=== PATIENT | male | born 1965 | race Caucasian/White ===

== ENCOUNTER 2022-01-12 07:57 | Outpatient (RCR) | payer MEDICARE, MEDICAID, SELFPAY ==
--- NOTE | 2022-01-05 15:42 | ONC.NURNOTE ---
Authorization: User: Xuan Marrufo Date: 06/17/21 13:54 Type: Eligibility Determination Note... Request received for prior authorization of Melon Powerevus [id number]. Patient has Medicare and Medicaid for insurance. No prior authorization is required for Ocrevus. Services are based on medical necessity and follow Medicare and Medicare guidelines.
[2022-01-12 08:19] VITALS: BP 127/77; PULSE 90; RESP 16; TEMP 36.5; O2SAT 96
[2022-01-12] MEDS: METHYLPREDNISOLONE SOD SUCC 62.5 MG/ML (125) 100 MG IVP (08:34)
[2022-01-12] MEDS: diphenhydrAMINE 50 MG/ML inj 25 MG IVP (08:35)
[2022-01-12 12:49] VITALS: BP 120/80; PULSE 88; RESP 16; TEMP 37.1; O2SAT 95
== END 2022-07-11 23:59 | disposition home or self-care (01) ==
LOC: CCIC 07:57
PROVIDERS: PCP Student in an Organized Health Care Education/Training Program; Visit Provider Clinical Nurse Specialist
DX: G35 Multiple sclerosis (principal)
CPT/HCPCS: 96365; 96366; 96376; J1200; J2350; J2930; J7120

== ENCOUNTER 2022-08-01 07:53 | Outpatient (RCR) | payer MEDICARE, MEDICAID, SELFPAY ==
--- NOTE | 2022-07-17 10:45 | ONC.NURNOTE ---
Pt called stating due for next infusion. Orders . F[employer] called and left message with Dr. Ellis's office and faxed infusion order form to be filled out.
--- NOTE | 2022-07-20 10:18 | URNOTE ---
Received request for prior auth for Ocrevus ([id number]). Per [employer] on behalf of [facility] this has been approved Ocrevus, 600mg every 6 months. 07/21/2022-07/21/2023. Ref # [id number]
[2022-08-01 08:19] VITALS: BP 126/83; PULSE 101; RESP 18; TEMP 36.8; O2SAT 98
[2022-08-01] MEDS: diphenhydrAMINE 50 MG/ML inj 25 MG IVP (08:34)
[2022-08-01] MEDS: METHYLPREDNISOLONE SOD SUCC 62.5 MG/ML (125) 100 MG IVP (08:34)
[2022-08-01 12:48] VITALS: BP 122/76; PULSE 89; RESP 18; TEMP 36.4; O2SAT 94
== END 2023-01-28 23:59 | disposition home or self-care (01) ==
LOC: CCIC 07:53
PROVIDERS: PCP Student in an Organized Health Care Education/Training Program; Referring Provider Student in an Organized Health Care Education/Training Program; Visit Provider Clinical Nurse Specialist
DX: G35 Multiple sclerosis (principal)
CPT/HCPCS: 96365; 96366; 96376; J1200; J2350; J2930; J7120

== ENCOUNTER 2023-01-30 08:01 | Outpatient (RCR) | payer MEDICAID, SELFPAY ==
[2023-01-30 08:20] VITALS: BP 129/81; PULSE 75; RESP 16; TEMP 36.5
[2023-01-30] MEDS: diphenhydrAMINE 50 MG/ML inj 25 MG IVP (08:46)
[2023-01-30] MEDS: METHYLPREDNISOLONE SOD SUCC 62.5 MG/ML (125) 100 MG IVP (09:16)
[2023-01-30 13:20] VITALS: BP 95/64; PULSE 91; RESP 20; TEMP 36.8; O2SAT 94
== END 2023-07-29 23:59 | disposition home or self-care (01) ==
LOC: CCIC 08:01
PROVIDERS: PCP Student in an Organized Health Care Education/Training Program; Referring Provider Student in an Organized Health Care Education/Training Program; Visit Provider Clinical Nurse Specialist
DX: G35 Multiple sclerosis (principal)
CPT/HCPCS: 96376; 96413; 96415; J1200; J2350; J2930; J7120

== ENCOUNTER 2024-06-13 12:53 | Outpatient (CLI) | payer MEDICAID, SELFPAY | END 2024-06-13 12:54 | disposition home or self-care (01) | PROVIDERS: PCP Student in an Organized Health Care Education/Training Program; Visit Provider Nurse Practitioner Family | DX: L89.893 Pressure ulcer of other site, stage 3 (principal); G35 Multiple sclerosis; Z99.3 Dependence on wheelchair | CPT/HCPCS: 11042; G0463 ==

== ENCOUNTER 2024-06-20 12:46 | Outpatient (CLI) | payer MEDICAID, SELFPAY | END 2024-06-20 12:47 | disposition home or self-care (01) | LOC: WOUND 12:46 | PROVIDERS: PCP Student in an Organized Health Care Education/Training Program; Visit Provider Nurse Practitioner Family | DX: L89.893 Pressure ulcer of other site, stage 3 (principal); G35 Multiple sclerosis | CPT/HCPCS: 87070; 97597 ==

== ENCOUNTER 2024-06-27 13:05 | Outpatient (CLI) | payer MEDICAID, SELFPAY | END 2024-06-27 13:06 | disposition home or self-care (01) | LOC: WOUND 13:05 | PROVIDERS: PCP Student in an Organized Health Care Education/Training Program; Visit Provider Nurse Practitioner Family | DX: L89.893 Pressure ulcer of other site, stage 3 (principal); G35 Multiple sclerosis | CPT/HCPCS: 97597 ==

== ENCOUNTER 2024-07-04 13:04 | Outpatient (CLI) | payer MEDICAID, SELFPAY | END 2024-07-04 13:05 | disposition home or self-care (01) | LOC: WOUND 13:05 | PROVIDERS: PCP Student in an Organized Health Care Education/Training Program; Visit Provider Physician Assistant | DX: L89.893 Pressure ulcer of other site, stage 3 (principal); G35 Multiple sclerosis | CPT/HCPCS: 97597 ==

== ENCOUNTER 2024-07-11 13:09 | Outpatient (CLI) | payer MEDICAID, SELFPAY | END 2024-07-11 13:10 | disposition home or self-care (01) | LOC: WOUND 13:09 | PROVIDERS: PCP Student in an Organized Health Care Education/Training Program; Visit Provider Physician Assistant | DX: L89.893 Pressure ulcer of other site, stage 3 (principal); G35 Multiple sclerosis | CPT/HCPCS: 97597 ==

== ENCOUNTER 2024-07-18 11:20 | Outpatient (CLI) | payer MEDICAID, SELFPAY | END 2024-07-18 11:21 | disposition home or self-care (01) | LOC: WOUND 11:20 | PROVIDERS: PCP Student in an Organized Health Care Education/Training Program; Visit Provider Nurse Practitioner Family | DX: L89.893 Pressure ulcer of other site, stage 3 (principal); G35 Multiple sclerosis; Z99.3 Dependence on wheelchair | CPT/HCPCS: 11042 ==

== ENCOUNTER 2024-07-25 13:05 | Outpatient (CLI) | payer MEDICAID, SELFPAY | END 2024-07-25 13:06 | disposition home or self-care (01) | PROVIDERS: PCP Student in an Organized Health Care Education/Training Program; Visit Provider Nurse Practitioner Family | DX: L89.893 Pressure ulcer of other site, stage 3 (principal); G35 Multiple sclerosis | CPT/HCPCS: 97597 ==

== ENCOUNTER 2024-08-01 13:12 | Outpatient (CLI) | payer MEDICAID, SELFPAY | END 2024-08-01 13:13 | disposition home or self-care (01) | LOC: WOUND 13:12 | PROVIDERS: PCP Student in an Organized Health Care Education/Training Program; Visit Provider Physician Assistant | DX: L89.893 Pressure ulcer of other site, stage 3 (principal); G35 Multiple sclerosis | CPT/HCPCS: 97597 ==

== ENCOUNTER 2024-08-07 14:50 | Outpatient (CLI) | payer MEDICAID, SELFPAY | END 2024-08-07 14:51 | disposition home or self-care (01) | LOC: RAD 14:50 | PROVIDERS: PCP Student in an Organized Health Care Education/Training Program; Visit Provider Nurse Practitioner Family | DX: L89.893 Pressure ulcer of other site, stage 3 (principal); L89.111 Pressure ulcer of right upper back, stage 1; G35 Multiple sclerosis; Z99.3 Dependence on wheelchair | CPT/HCPCS: 11042; 73630; 87070; 87186; G0463 ==

== ENCOUNTER 2024-08-13 14:03 | Outpatient (CLI) | payer MEDICAID, SELFPAY | END 2024-08-13 14:04 | disposition home or self-care (01) | PROVIDERS: PCP Student in an Organized Health Care Education/Training Program; Visit Provider Nurse Practitioner Family | DX: L89.893 Pressure ulcer of other site, stage 3 (principal); G35 Multiple sclerosis | CPT/HCPCS: 11042 ==

== ENCOUNTER 2024-08-15 13:03 | Outpatient (CLI) | payer MEDICAID, SELFPAY | END 2024-08-15 13:04 | disposition home or self-care (01) | LOC: WOUND 13:03 | PROVIDERS: PCP Student in an Organized Health Care Education/Training Program; Visit Provider Nurse Practitioner Family | DX: L89.893 Pressure ulcer of other site, stage 3 (principal); G35 Multiple sclerosis; Z99.3 Dependence on wheelchair | CPT/HCPCS: G0463 ==

== ENCOUNTER 2024-08-22 13:06 | Outpatient (CLI) | payer MEDICAID, SELFPAY ==
[2024-08-22 14:16] LABS: Chloride* 96 mmol/L (96-114); Potassium* 3.6 mmol/L (3.6-5.1); Sodium* 142 mmol/L (135-149)
[2024-08-22 14:19] LABS: Anion Gap 9 mEq/L (7-15); Blood Urea Nitrogen* 18 mg/dL (7-30); Carbon Dioxide* 37 mmol/L (20-32); Creatinine* 0.9 mg/dL (0.5-1.5); Estimated Glomerular Filt Rate 99 ml/min
[2024-08-22 14:20] LABS: Calcium* 9.5 mg/dL (8.4-10.6); Glucose* 93 mg/dL (60-115)
[2024-08-22 14:25] LABS: Basophils Absolute Auto 0.04 K/uL (0.00-0.30); Basophils Percent Auto 0.6 % (0.0-3.0); Eosinophils Absolute Auto 0.16 K/uL (0.00-0.50); Eosinophils Percent Auto 2.4 % (0.0-7.0); Hematocrit 48.7 % (37.0-53.0); Hemoglobin* 15.8 gm/dL (13.5-17.5); Immature Granulocytes Abs Auto 0.01 K/uL (0.00-0.30); Immature Granulocytes Pct Auto 0.2 %; Lymphocytes Absolute Auto 1.58 K/uL (0.90-2.90); Lymphocytes Percent Auto 23.9 % (20-44); Mean Corpuscular HGB Conc 32 gm/dL (32-36); Mean Corpuscular Hemoglobin 30 pg (26-34); Mean Corpuscular Volume 92 fL (80-100); Neutrophils Absolute Auto 4.35 K/uL (1.7-7.0); Neutrophils Percent Auto 65.9 % (42.0-72.0); Platelet Count* 275 K/uL (140-440); RDW Coefficient of Variation % 12.9 % (11.5-15.5); Red Blood Count 5.29 m/uL (4.30-5.90)
[2024-08-22 14:39] LABS: C Reactive Protein* < 0.5 mg/dL (0.5-1.0)
[2024-08-22 14:46] LABS: Slide Review Reflex No
== END 2024-08-22 13:07 | disposition home or self-care (01) ==
LOC: WOUND 13:06
PROVIDERS: PCP Student in an Organized Health Care Education/Training Program; Visit Provider Nurse Practitioner Family
DX: L89.893 Pressure ulcer of other site, stage 3 (principal); G35 Multiple sclerosis; Z99.3 Dependence on wheelchair
CPT/HCPCS: 36415; 80048; 85025; 86140; 97597

== ENCOUNTER 2024-08-25 13:02 | Outpatient (CLI) | payer MEDICAID, SELFPAY | END 2024-08-25 13:03 | disposition home or self-care (01) | LOC: WOUND 13:02 | PROVIDERS: PCP Student in an Organized Health Care Education/Training Program; Visit Provider Nurse Practitioner Family | DX: L89.893 Pressure ulcer of other site, stage 3 (principal); G35 Multiple sclerosis | CPT/HCPCS: 97602; G0463 ==

== ENCOUNTER 2024-08-29 13:04 | Outpatient (CLI) | payer MEDICAID, SELFPAY | END 2024-08-29 13:05 | disposition home or self-care (01) | LOC: WOUND 13:04 | PROVIDERS: PCP Student in an Organized Health Care Education/Training Program; Visit Provider Family Medicine | DX: L89.893 Pressure ulcer of other site, stage 3 (principal); G35 Multiple sclerosis; Z99.3 Dependence on wheelchair | CPT/HCPCS: 11042 ==

== ENCOUNTER 2024-09-05 13:21 | Outpatient (CLI) | payer MEDICAID, SELFPAY | END 2024-09-05 13:22 | disposition home or self-care (01) | LOC: WOUND 13:22 | PROVIDERS: PCP Student in an Organized Health Care Education/Training Program; Visit Provider Nurse Practitioner Family | DX: L89.893 Pressure ulcer of other site, stage 3 (principal); G35 Multiple sclerosis | CPT/HCPCS: 11042 ==

== ENCOUNTER 2024-09-12 13:19 | Outpatient (CLI) | payer MEDICAID, SELFPAY | END 2024-09-12 13:20 | disposition home or self-care (01) | LOC: WOUND 13:19 | PROVIDERS: PCP Student in an Organized Health Care Education/Training Program; Visit Provider Nurse Practitioner Family | DX: L89.893 Pressure ulcer of other site, stage 3 (principal); G35 Multiple sclerosis | CPT/HCPCS: 11042 ==

== ENCOUNTER 2024-09-18 13:51 | Outpatient (CLI) | payer MEDICAID, SELFPAY | END 2024-09-18 13:52 | disposition home or self-care (01) | LOC: WOUND 13:51 | PROVIDERS: PCP Student in an Organized Health Care Education/Training Program; Visit Provider Nurse Practitioner Family | DX: L89.893 Pressure ulcer of other site, stage 3 (principal); G35 Multiple sclerosis; Z99.3 Dependence on wheelchair | CPT/HCPCS: 11042 ==

== ENCOUNTER 2024-09-26 13:23 | Outpatient (CLI) | payer MEDICAID, SELFPAY | END 2024-09-26 13:24 | disposition home or self-care (01) | LOC: WOUND 13:23 | PROVIDERS: PCP Student in an Organized Health Care Education/Training Program; Visit Provider Surgery | DX: L89.893 Pressure ulcer of other site, stage 3 (principal); G35 Multiple sclerosis | CPT/HCPCS: 97597 ==

== ENCOUNTER 2024-10-03 13:24 | Outpatient (CLI) | payer MEDICAID, SELFPAY | END 2024-10-03 13:25 | disposition home or self-care (01) | LOC: WOUND 13:25 | PROVIDERS: PCP Student in an Organized Health Care Education/Training Program; Visit Provider Nurse Practitioner Family | DX: Z09 Encounter for follow-up examination after completed treatment for conditions other than malignant neoplasm (principal); Z87.2 Personal history of diseases of the skin and subcutaneous tissue; G35 Multiple sclerosis | CPT/HCPCS: G0463 ==

== ENCOUNTER 2024-11-27 08:28 | Outpatient (CLI) | payer MEDICAID, SELFPAY | END 2024-11-27 08:29 | disposition home or self-care (01) | LOC: WOUND 08:29 | PROVIDERS: PCP Student in an Organized Health Care Education/Training Program; Visit Provider Nurse Practitioner Family | DX: L89.893 Pressure ulcer of other site, stage 3 (principal); G35 Multiple sclerosis; Z99.3 Dependence on wheelchair | CPT/HCPCS: 97597; G0463 ==

== ENCOUNTER 2024-12-10 14:20 | Outpatient (CLI) | payer MEDICAID, SELFPAY | END 2024-12-10 14:21 | disposition home or self-care (01) | LOC: WOUND 14:20 | PROVIDERS: PCP Student in an Organized Health Care Education/Training Program; Visit Provider Surgery | DX: L89.893 Pressure ulcer of other site, stage 3 (principal); G35 Multiple sclerosis | CPT/HCPCS: 97597 ==

== ENCOUNTER 2024-12-24 14:58 | Outpatient (CLI) | payer MEDICAID, SELFPAY | END 2024-12-24 14:59 | disposition home or self-care (01) | LOC: WOUND 14:58 | PROVIDERS: PCP Student in an Organized Health Care Education/Training Program; Visit Provider Surgery | DX: L89.893 Pressure ulcer of other site, stage 3 (principal); G35 Multiple sclerosis | CPT/HCPCS: G0463 ==